=== PATIENT | female | born 1995 | race American Indian/Alaskan Native ===

== ENCOUNTER 2017-10-17 17:30 | Emergency (ER) | payer SELFPAY ==
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
[2017-10-18] MEDS ORDERED: MOTRIN PO ONE (02:02)
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
[2017-10-18 03:17] VITALS: BP 127/84
== END 2017-10-18 03:22 | disposition home or self-care (01) ==
LOC: ED 17:30
DX: S80.02XA Contusion of left knee, initial encounter (principal); S70.12XA Contusion of left thigh, initial encounter; F07.81 Postconcussional syndrome; Y04.8XXA Assault by other bodily force, initial encounter; Y93.89 Activity, other specified; Y92.89 Other specified places as the place of occurrence of the external cause; Y99.8 Other external cause status
CPT/HCPCS: 70450; 72125; 99283